=== PATIENT | male | born 1985 | race Caucasian/White ===

== ENCOUNTER 2023-07-17 14:53 | Emergency (ER) | payer MEDICAID, OTHER ==
[~2023-07-17] VITALS: Ht 190.5 cm; Wt 100.0 kg
[2023-07-17 15:01] VITALS: TEMP 97.9
[2023-07-17 16:14] VITALS: BP 138/81; PULSE 81; RESP 16; O2SAT 100
== END 2023-07-17 16:20 ==
LOC: ER 14:54
DX: T40.2X1A Poisoning by other opioids, accidental (unintentional), initial encounter (principal); Y92.89 Other specified places as the place of occurrence of the external cause; I10 Essential (primary) hypertension; G89.29 Other chronic pain
CPT/HCPCS: 99283